=== PATIENT | female | born 1965 ===

== ENCOUNTER 2019-06-03 07:42 | Outpatient (CLI) | payer OTHER, SELFPAY ==
--- NOTE | 2019-06-12 03:15 | SLEEP_ITS ---
Home Sleep Test DATE OF STUDY: 06/03/2019 REASON FOR THIS STUDY: Excessive daytime sleepiness, waking at night to use the bathroom. HISTORY: This patient is a 53-year-old female, 5 feet 4 inches tall, weighing 270 pounds with a body mass index of 46.3 kg/metered square. 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 She has difficulty sleeping, which she attributes to her thyroid. At times, she cannot fall asleep and it may take hours, and she is tired all throughout the day. Other times, she falls asleep quickly. She never sleeps completely through the night up 2-3 times at night to use the bathroom and adjust her sleeping position. She has difficulty falling asleep and staying asleep. She uses melatonin on occasion. She does not awaken from sleep feeling short of breath, but she occasionally awakens at night with heartburn, belching, or coughing and frequently snores. She occasionally snores loudly enough that others complain about it. She frequently has trouble sleeping with a cold. She denies gasping for breath at night or having witnessed apneas reported to her by others. She occasionally sweats excessively at night and rarely notices her heart pounding or beating irregularly at night, occasionally falls asleep during the day never involuntarily, never while driving, never with physical effort. She does not have loss of muscle tone with strong emotion. She rarely has daytime difficulties due to sleepiness. She has never had the feeling of paralysis when waking or falling asleep. She occasionally has vivid dreamlike scenes upon awakening or falling asleep. She is never afraid to go to sleep. She occasionally has nightmares, occasionally remembers her dreams. She frequently has racing thoughts, occasionally feels sad, depressed, and frequently feels anxious. She frequently has muscular tension. She does not notice parts of her body jerking and she does not kick at night. She occasionally has crawly, achy, feelings in her legs, occasionally has leg pain at night and occasionally has morning jaw pain. She occasionally grinds her teeth during sleep, occasionally is bothered by pain during the day as well as during the night. She occasionally wakes up feeling stiff in the morning, rarely with sore achy muscles, occasionally with pain in the neck and spine. She has fatigue and difficulty relaxing, headaches, takes antacids regularly. She goes to bed at 10:30 p.m., falling asleep quickly at times, but other times it may take hours. She is typically awake 3 times at night for 5 minutes to use the bathroom or turn over. She wakes in the morning between 6 and 7 a.m. On weekends, she retires at midnight and wakes between 7 and 8 a.m. Her sleep is disturbed by itching and hives. She sometimes takes a nap. A 20 minute nap can be refreshing. She feels better in the morning than other times of day. MEDICAL COMORBIDITIES: Hypothyroidism, hyperlipidemia, seasonal allergies, hypertension, impaired fasting glucose. MEDICATIONS: 1. Rybelsus 7 mg daily for insulin resistance. 2. Synthroid 0.2 mg daily for hypothyroidism. 3. Metformin 500 mg 1 b.i.d. 4. Losartan/hydrochlorothiazide 100/25 one daily for hypertension. 5. Fenofibrate 160 mg a day. 6. Rosuvastatin 40 mg a day. 7. Prevacid 30 mg a day. HABITS: Previously smoked tobacco years ago. Caffeine, 1 cup of coffee a day. Alcohol 2-3 per week. No recreational drugs. DESCRIPTION OF THE STUDY: On the [place] Sleepiness Scale, her score is 6. This was conducted as a portable home sleep test using 4 channel monitoring including respiratory effort channel, snoring channel, oxygen desaturation channel, and heart rate channel. This study was scored using [facility] guidelines. Duration of the study was 8 hours 32 minutes. The apnea-hy
== END 2019-06-03 07:43 | disposition home or self-care (01) ==
LOC: ANHCSM 07:42
PROVIDERS: PCP Internal Medicine Endocrinology, Diabetes & Metabolism; Visit Provider Internal Medicine Endocrinology, Diabetes & Metabolism
DX: G47.33 Obstructive sleep apnea (adult) (pediatric) (principal); I10 Essential (primary) hypertension
CPT/HCPCS: 95806

== ENCOUNTER → 2022-07-25 11:13 | Outpatient (CLI) | payer SELFPAY ==
--- NOTE | ~2022-07-25 | US_ITS ---
Pelvic ultrasound. Clinical History: Ovarian cyst Technique: Realtime transabdominal and transvaginal scanning of the pelvis was performed. Color flow Doppler and Doppler spectral analysis were performed. Findings: The uterus is absent, compatible prior hysterectomy. The right ovary is not visualized. No significant right ovarian or adnexal mass is seen. The left ovary is questionably imaged, measuring 2.0 x 1.4 x 1.5 cm. No significant left ovarian or adnexal mass is seen. There is no evidence of free fluid in the cul de sac. Impression: No ovarian cyst identified. Questionable visualization of left ovary. Right ovary not seen. Status post hysterectomy. Reviewed, dictated and finalized at location . Impression: No ovarian cyst identified. Questionable visualization of left ovary. Right ova ry not seen. Status post hysterectomy.
== END ==
PROVIDERS: PCP Internal Medicine Endocrinology, Diabetes & Metabolism; Visit Provider Internal Medicine Endocrinology, Diabetes & Metabolism
DX: N83.209 Unspecified ovarian cyst, unspecified side (principal)
CPT/HCPCS: 76830